=== PATIENT | male | born 1990 | race Hispanic/Latino ===

== ENCOUNTER 2017-06-07 06:21 | Day surgery (SDC) | payer MEDICAID ==
[~2017-06-07 06:21] MED LIST: ANCEF/STERILE WATER 2 GM/20 ML 2 GM/20 ML SYRINGE IV NR
[2017-06-07] MEDS ORDERED: VERSED IV NR (07:00)
[2017-06-07] MEDS ORDERED: LACTATED RINGERS 1,000 ML IV SCH (07:00)
[2017-06-07] MEDS ORDERED: PEPCID PO NR (07:00)
--- NOTE | 2017-06-07 07:34 | Anesthesia Consultation ---
Anesthesia Consult and Med Hx Date of service: 06/07/17 - Airway Anesthetic Teeth Evaluation: Good ROM Head & Neck: Adequate Mental/Hyoid Distance: Adequate - Pulmonary Exam CTA: Yes - Cardiac Exam Cardiac Exam: RRR - Pre-Operative Health Status ASA Pre-Surgery Classification: ASA2 Proposed Anesthetic Plan: General - Pre-Anesthesia Comment Pre-Anesthesia Comments: Severe Autism, non commucative - Central Nervous System Hx Seizures: Yes (As a baby )
--- NOTE | 2017-06-07 07:34 | Anesthesia Day of Surgery ---
Anesthesia Day of Surgery - Day of Surgery Patient Examined: Yes Patient H&P Reviewed: Yes Patient is NPO: Yes
[2017-06-07] MEDS ORDERED: ANCEF/STERILE WATER 2 GM/20 ML IV NR (07:45)
[2017-06-07] MEDS ORDERED: PEPCID IV NR (07:45)
[2017-06-07] MEDS ORDERED: DILAUDID ONE ×2 (08:00→08:31)
[2017-06-07] MEDS ORDERED: XYLOCAINE MPF 2% ONE (08:00)
[2017-06-07] MEDS ORDERED: ZOFRAN ONE (08:00)
[2017-06-07] MEDS ORDERED: DIPRIVAN 10 MG/ML IV ONE (08:01)
--- NOTE | 2017-06-07 08:02 | Post Operative Note ---
Date of procedure: 06/07/17 Pre-op diagnosis: huge r hydrocele Post-op diagnosis: same Findings: as above Procedure: r hydrocelectomy Anesthesia: GETA Surgeon: CAMILO OLIVIA Estimated blood loss: minimal Pathology: list (sac) Condition: stable Disposition: PACU
--- NOTE | 2017-06-07 08:03 | Discharge Summary ---
Short Stay Discharge Plan Activity: other (no straining ) Weight Bearing Status: Full Weight Bearing Diet: low fat, low cholesterol Wound: other (change dressing q day ) Special Instructions: other (pt has savanna drain ) Durable Medical Equipment Needed Upon Discharge: other (as above) Follow up with: PRIMARY CARE, [Primary Care Provider] - 7 Days CAMILO OLIVIA MD [Staff Physician] - 06/09/17
[2017-06-07] MEDS ORDERED: DECADRON ONE (08:15)
[2017-06-07] MEDS ORDERED: NACL 0.9% IR ONE (08:45)
[2017-06-07] MEDS ORDERED: TORADOL ONE (08:49)
--- NOTE | 2017-06-07 09:33 | Post Anesthesia Evaluation ---
- Post Anesthesia Evaluation Patient Participated: Yes Airway Patent: Yes Stable Respiratory Function: Yes Nausea/Vomiting: No Temp > 96.8F: Yes Pain Manageable: Yes Adequeate Hydration: Yes Anesthesia Complications: No Block Receding Appropriately: Not Applicable Patient on Ventilator: No
--- NOTE | 2017-06-07 13:01 | Operative Report ---
PREOPERATIVE DIAGNOSES: Large right hydrocele, previously undescended or retractile left testis. POSTOPERATIVE DIAGNOSIS: Large right hydrocele, both testes descended. PROCEDURE: Right hydrocelectomy. SURGEON: Valdez Palmer MD ANESTHESIA: General. FINDINGS: This is an autistic gentleman with a large hydrocele, intermittently looks like he has some discomfort. He now presents for repair. DESCRIPTION OF PROCEDURE: The patient was brought to the operating room and placed on the operating table. Following induction of anesthesia, placed in supine position, prepped and draped in the usual sterile fashion. An oblique incision was carried through the right hemiscrotum and carried through the skin and superficial fascia. The fascia was dissected off of the tunica vaginalis. The fascia was quite thick and there was increased vascularity in the fascia. The tunica vaginalis was opened and approximately 150 mL of shara-colored fluid was obtained. At this point, a large amount of the hydrocele tunica and sac were removed and this was oversewn with 2-0 and 3-0 chromic. The patient tolerated the procedure well. Wound was copiously irrigated. A 0.5 inch [place] drain was placed in the scrotum. Wound was irrigated once again and the fascia was approximated with 2-0 and 3-0 chromic and the skin with 2-0 and 3-0 chromic. The patient tolerated the procedure well. Minimal blood loss. Family notified, brought to recovery in stable condition. JOB# [id number] JAKI/BERNARDA
[2017-06-07 13:44] VITALS: BP 125/81
== END 2017-06-07 10:31 | disposition home or self-care (01) ==
LOC: OR 06:21
PROVIDERS: ATTEND Urology
DX: N43.3 Hydrocele, unspecified (principal); N50.89 Other specified disorders of the male genital organs; F84.0 Autistic disorder; Z79.899 Other long term (current) drug therapy; Z98.890 Other specified postprocedural states
CPT/HCPCS: 55040; 88302; J0690; J1100; J1170; J1885; J2250; J2405; J2704; J7120

== ENCOUNTER 2019-07-03 15:16 | Outpatient (CLI) | payer MEDICAID ==
[2019-07-03 15:39] LABS: Hematocrit 41.4 % (35.5-45.6); Hemoglobin 14.4 gm/dl (11.8-15.2); Mean Corpuscular HGB Conc 35 % (32-34); Mean Corpuscular Volume 83 fl (84-94); Platelet Count 172 K/mm3 (140-440); Red Blood Count 4.99 M/mm3 (3.65-5.03)
[2019-07-03 16:04] LABS: Alanine Aminotransferase 9 units/L (7-56); Albumin 4.3 g/dL (3.9-5); BUN/Creatinine Ratio 16; Blood Urea Nitrogen 14 mg/dL (9-20); Hemolysis Index 7; LDL Cholesterol,Direct 98 mg/dL (50-130)
[2019-07-03 16:11] LABS: Free T4 (Free Thyroxine) 1.52 ng/dL (0.76-1.46)
[2019-07-03 16:18] LABS: Basophils % (Manual) 0 % (0.0-1.8); Eosinophils % (Manual) 0 % (0.0-4.3); RBC Morphology Normal; Total Cells Counted 100
[2019-07-03 16:31] LABS: Chol/HDL Ratio 4.17 %; HDL Cholesterol 34 mg/dL (40-59)
== END 2019-07-03 15:17 | disposition home or self-care (01) ==
LOC: LAB 15:16
DX: F06.30 Mood disorder due to known physiological condition, unspecified (principal); F84.0 Autistic disorder; Z79.810 Long term (current) use of selective estrogen receptor modulators (SERMs); Z90.89 Acquired absence of other organs
CPT/HCPCS: 36415; 80053; 80061; 83036; 84146; 84439; 84443; 85007